=== PATIENT | female | born 1945 | race Caucasian/White ===

== ENCOUNTER → 2018-01-05 | Day surgery (SDC) | payer OTHER, MEDICARE ==
--- NOTE | 2018-01-05 20:01 | OP ---
DATE OF OPERATION: 01/05/2018 PREOPERATIVE DIAGNOSES: Right axillary adenopathy, prior history of non-Hodgkins lymphoma. POSTOPERATIVE DIAGNOSES: Right axillary adenopathy, prior history of non-Hodgkins lymphoma. PROCEDURE: Right ultrasound-guided core biopsy of axillary lymph node with clip placement. ANESTHESIA: Local. ATTENDING SURGEON: Faviola Overton MD ESTIMATED BLOOD LOSS: Minimal. COMPLICATIONS: None. DESCRIPTION OF PROCEDURE: Patient was made aware of the risks and benefits of the procedure and consented. She was placed in a supine position. Under sterile conditions with 1% lidocaine for local anesthesia, a small scott was made in the skin. Using a 13-gauge suction-biopsy device via inferior approach under ultrasound guidance, multiple cores were obtained and submitted to Pathology fresh. Likewise, under ultrasound guidance, a HydroMARK clip was placed into the biopsy region. Well tolerated by patient. Steri-Strips and sterile dressing were applied. We will contact her with the results. FAVIOLA OVERTON M.D. [id number]
--- NOTE | 2018-01-13 15:15 | PATH ---
Surgical Pathology Report Patient Name: ROGELIO DRAKE [facility]. Rec. #: [id number] /Age/Gender: 1945 (Age: 72) / F Account: [id number] Location: [facility] Taken: 01/04/2018 Received: 01/05/2018 Reported: 01/13/2018 Physicians: Faviola Overton M.D. Specimen(s) Received RIGHT AXILLARY LYMPH NODE BIOPSY Clinical History History of large cell lymphoma Final Diagnosis LYMPH NODE, AXILLARY, BIOPSY. FRAGMENTS OF LYMPHOID HYPERPLASIA. SEE COMMENT. Comment: Histologic sections show multiple small fragments of lymphoid and adipose tissue. The lymphoid tissue has a nodular architecture. There are scattered primary and secondary lymphoid follicles. The secondary follicles have normal germinal center cellular components. Interfollicular areas are expanded and consist predominantly of small lymphocytes with occasional plasma cells. Immunohistochemical stains are performed with appropriate controls. Stains for CD20 and CD3 show normal compartmentalization of B-cells and T-cells, respectively. The CD20 positive germinal centers are additionally positive for CD10 and BCL-6, while they are negative for BCL-2. A stain for CD5 is similar to CD3. A stain for Cyclin-D1 is negative in lymphocytes. Stains for CD21 and CD23 highlight intact follicular dendritic meshworks. A stain for CD138 highlights scattered plasma cells, predominantly in an interfollicular distribution. A stain for Ki67 shows high reactivity within the germinal centers. In-situ hybridization for [place] and Lambda light chains shows the plasma cells to be polytypic. Concurrent lymphoproliferative flow panel performed and interpreted at [place], [place] ([id number]) shows no clonal B-cell or atypical T-cell population detected. History of large cell lymphoma noted. This case was sent to Dr. Olvin Brock from [facility], [place], [place] ([id number]) the diagnosis above reflects his opinion. Findings discussed with Dr. Overton. Electronically Signed Paz Granados M.D. Gross Description Received fresh, labeled right axillary lymph node is a 1.2 x 0.8 x 0.2 cm aggregate of red and pink friable tissue. A portion of the tissue is placed in RPMI and sent to reference laboratory for flow cytometric analysis. The remaining tissue is submitted entirely in one cassette. AE/01/05/2018 ebram/01/05/2018
== END | disposition home or self-care (01) ==
LOC: FRADUS-SUR 12:46
PROVIDERS: ATTEND Surgery Surgical Oncology
PROC: 07B53ZX Excision of Right Axillary Lymphatic, Percutaneous Approach, Diagnostic (ICD-10-PCS; principal; 2018-01-05)
PROC: BH47ZZZ Ultrasonography of Upper Extremity (ICD-10-PCS; 2018-01-05)
DX: R59.9 Enlarged lymph nodes, unspecified (principal); Z85.72 Personal history of non-Hodgkin lymphomas
CPT/HCPCS: 19083; 87899; 88307-TC; A4648